=== PATIENT | male | born 1970 ===

== ENCOUNTER 2017-10-11 15:49 | Emergency (ER) | payer SELFPAY | END 2017-10-11 16:55 | disposition home or self-care (01) | LOC: ERS 15:49 | DX: S01.01XD Laceration without foreign body of scalp, subsequent encounter (principal); E11.9 Type 2 diabetes mellitus without complications; I10 Essential (primary) hypertension; F41.9 Anxiety disorder, unspecified; F31.9 Bipolar disorder, unspecified; F17.210 Nicotine dependence, cigarettes, uncomplicated; Z79.84 Long term (current) use of oral hypoglycemic drugs; Z79.899 Other long term (current) drug therapy; W01.10XD Fall on same level from slipping, tripping and stumbling with subsequent striking against unspecified object, subsequent encounter ==